=== PATIENT | male | born 1960 | race Caucasian/White ===

== ENCOUNTER 2023-09-15 16:46 | Emergency (ER) | payer OTHER, SELFPAY ==
[2023-09-15] VITALS (14 sets, daily range): BP systolic 125–162; BP diastolic 64–100; PULSE 82–102; RESP 12–21; TEMP 36.7; O2SAT 93–99; BMI 28.6
--- NOTE | 2023-09-15 16:59 | ECG_ITS ---
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
[2023-09-15 17:15] LABS: Basophils Absolute Auto 0.1 10^3/uL (0.0-0.1); Basophils Percent Auto 0.8 % (0.2-2.0); Eosinophils Absolute Auto 0.3 10^3/uL (0.0-0.7); Eosinophils Percent Auto 2.1 % (0.9-7.0); Hematocrit 42.7 % (42.0-54.0); Hemoglobin 14.5 g/dL (14.0-18.0); Immature Granulocytes Abs Auto 0.06 10^3/uL (0.00-0.03); Immature Granulocytes Pct Auto 0.5 % (0.0-0.5); Lymphocytes Absolute Auto 2.2 10^3/uL (1.2-3.8); Lymphocytes Percent Auto 16.8 % (20.5-60.0); Mean Corpuscular Hemoglobin 29.4 pg (25.9-34.0); Mean Corpuscular Volume 86.6 fL (80.0-94.0); Mean Platelet Volume 10.6 fL (9.5-13.5); Monocytes Absolute Auto 0.8 10^3/uL (0.3-0.8); Monocytes Percent Auto 6.3 % (1.7-12.0); Neutrophils Absolute Auto 9.6 10^3/uL (1.4-6.5); Neutrophils Percent Auto 73.5 % (43.0-75.0); Platelet Count 252 10^3/uL (150-450); Red Blood Count 4.93 10^6/uL (4.70-6.10)
--- NOTE | 2023-09-15 17:19 | ED.GENADUL1 ---
HPI - General Adult General Chief complaint: Arrhythmia/Palpitations Stated complaint: Palpitations, Dizziness, Sweats Time Seen by Provider: 09/15/23 16:50 Source: patient Mode of arrival: walk-in Limitations: no limitations History of Present Illness HPI narrative: Patient was standing at work when he suddenly developed dizziness, heart palpitations - like my heart was racing - and then felt cool and had clammy skin. Symptoms lasted about 30 minutes - he went to the office at work, sat down and slowly started to feel better. By the time he arrived to the E.D. he felt back to normal. ROS = he had a cough for about a week that produced sputum but is gone now. No associated fever. PMHx = COPD, hypothyroidism, high cholesterol. No history of vertigo, CAD, AMI, dysrhythmia or stenting Related Data Home Medications Medication Instructions Recorded Confirmed budesonide 160 mcg-glycopyr 9 2 inh inhalation BID 09/15/23 09/15/23 mcg-formot 4.8 mcg/actuation HFA inhaler (Breztri Petsyphere) levothyroxine 125 mcg tablet 125 mcg PO DAILY 09/15/23 09/15/23 rosuvastatin 10 mg tablet 10 mg PO DAILY 09/15/23 09/15/23 Allergies Allergy/AdvReac Type Severity Reaction Status Date / Time cefuroxime [From Ceftin] Allergy Hives Verified 09/15/23 16:54 Exam Narrative Exam Narrative: Nurses notes and vital signs reviewed and patient is not hypoxic. afebrile General: Well-appearing and in no apparent distress. Skin: Warm, dry, no pallor noted. Head: Normocephalic, atraumatic. Eye: Pupils are equal, round and EOMI. No scleral icterus. No nystagmus Ears, Nose, Mouth, and Throat: Oral mucosa is moist Cardiovascular: Regular Rate and Rhythm without murmur, gallop or rub. Respiratory: No accessory muscle use or respiratory distress. Lungs are clear to auscultation, no wheezing, rales or rhonchi Musculoskeletal: normal ROM, no calf or popliteal tenderness, no lower extremity edema/swelling GI: Abdomen is soft, non-distended. Normal bowel sounds. No tenderness to palpation. No rebound, guarding, or rigidity noted. Neurological: A&O x4. No cranial nerve dysfunction observed. No truncal ataxia. Moves all extremities. Sensation intact. Psychiatric: Cooperative and interactive. Normal mood and affect. Constitutional Vital Signs, click to edit/add: Last Vital Signs Temp 98.1 F 09/15/23 16:54 Pulse 86 09/15/23 18:00 Resp 12 09/15/23 18:00 BP 145/94 H 09/15/23 18:00 Pulse Ox 94 L 09/15/23 18:00 O2 Del Method Room Air 09/15/23 16:54 Course Vital Signs Vital signs: Vital Signs Blood Pressure 162/100 H 09/15/23 16:52 Temperature 98.1 F 09/15/23 16:54 Pulse Rate 86 09/15/23 18:00 Respiratory Rate 12 09/15/23 18:00 Blood Pressure 145/94 H 09/15/23 18:00 Pulse Oximetry 94 L 09/15/23 18:00 Oxygen Delivery Method Room Air 09/15/23 16:54 Medical Decision Making MDM Narrative Medical decision making narrative: Patient was placed on financial services specialist and EKG obtained. Blood drawn and sent for evaluation. Orthostatics were positive with 30pt drop in systolic BP going from sitting to standing. Patient received a liter of NS IVF. EKG normal. WBC 13k, no left shift. CMP unremarkable. Troponin negative. Free T3 and Free T4 normal levels. Covid and Influenza were negative. CXR negative for acute worrisome pathology. Results explained to the patient. He was given reassurance. Encouraged to increase oral fluid intake the next 24 hours. If his 2nd troponin is negative then he can be discharged and can see PCP for follow up. ED return if he worsens. Patient signed out to Dr Wayne at 7pm shift change. Lab Data Lab results reviewed: Yes I reviewed the patient's lab results Labs: Lab Results 09/15/23 09/15/23 Range/Units 17:00 17:05 WBC 13.0 H (4.0-11.0) 10^3/uL RBC 4.93 (4.70-6.10) 10^6/uL Hgb 14.5 (14.0-18.0) g/dL Hct 42.7 (42.0-54.0) % MCV 86.6 (80.0-94.0) fL MCH 29.4 (25.9-34.0) pg MCHC 34.0 (29.9-35.2) g/dL RDW 12.0 (11.0-15.0) % Plt Count 252 (150-450) 10^3/uL MPV 10.6 (9.5-13.5) fL Neut % (Auto) 73.5 (43.0-75.0) % Lymph % (Auto) 16.8 L (20.5-60.0) % [place] % (Auto) 6.3 (1.7-12.0) % Eos % (Auto) 2.1 (0.9-7.0) % Baso % (Auto) 0.8 (0.2-2.0) % Neut # (Auto) 9.6 H (1.4-6.5) 10^3/uL Lymph # (Auto) 2.2 (1.2-3.8) 10^3/uL [place] # (Auto) 0.8 (0.3-0.8) 10^3/uL Eos # (Auto) 0.3 (0.0-0.7) 10^3/uL Baso # (Auto) 0.1 (0.0-0.1) 10^3/uL Abs Immat Gran (auto) 0.06 H (0.00-0.03) 10^3/uL Imm/Tot Granulo (auto) 0.5 (0.0-0.5) % Sodium 139 (136-145) mmol/L Potassium 3.8 (3.5-5.1) mmol/L Chloride 103 (98-107) mmol/L Carbon Dioxide 25.1 (21.0-32.0) mmol/L Anion Gap 14.7 BUN 13.0 (7.0-18.0) mg/dL Creatinine 0.94 (0.70-1.30) mg/dL Est GFR ( Amer) >60 (>=60) Est GFR (Non-Af Amer) >60 (>=60) BUN/Creatinine Ratio 13.8 Glucose 99 (74-106) mg/dL Calcium 9.4 (8.5-10.1) mg/dL Total Bilirubin 0.4 (0.2-1.0) mg/dL AST 23 (15-37) U/L ALT 49 (16-63) U/L Alkaline Phosphatase 92 (46-116) U/L Troponin I High Sens 7.6 (4.0-76.1) pg/mL Total Protein 7.8 (6.4-8.2) g/dL Albumin 3.7 (3.4-5.0) g/dL Globulin 4.1 g/dL Albumin/Globulin Ratio 0.9 Free T4 1.27 (0.76-1.46) ng/dL Free T3 2.56 (2.18-3.98) pg/mL Influenza Type A Ag Negative Influenza Type B Ag Negative SARS-CoV-2 Ag (CV2AG) Negative (NEGATIVE) Imaging Data Chest x-ray: Radiologist's impression: ITS Impressions Chest X-Ray 09/15/23 17:25 IMPRESSION: No acute infiltrate or evidence of cardiac decompensation. The overall appearance of the chest is essentially unchanged. Electronically authenticated by: PATITO LARSON Date: 09/15/2023 17:53 ECG Data Attestation: I personally reviewed and interpreted this ECG as follows: Interpretation: EKG interpretation: Emergency Department physician interpretation. Normal sinus rhythm at 91bpm. Normal axis, normal intervals and no ST segment elevation or depression. Normal EKG. Discharge Plan Discharge Chief Complaint: Arrhythmia/Palpitations Clinical Impression: Orthostasis, Near syncope Patient Disposition: Still a Patient Time of Disposition Decision: 18:25 Prescriptions / Home Meds: No Action levothyroxine 125 mcg tablet 125 mcg PO DAILY rosuvastatin 10 mg tablet 10 mg PO DAILY Breztri Aerosphere 160-9-4.8 mcg/actuation HFA aerosol inhaler 2 inh inhalation BID Instructions: Dizziness (ED) Stand Alone Forms: Portal Instructions Referrals: ALBERTO RAMSAY [Primary Care Provider] - 1 week
[2023-09-15] MEDS: 0.9 % SODIUM CHLORIDE 1,000 ML 999 ML IV (17:23)
[2023-09-15 17:24] LABS: Influenza Virus A Antigen Negative; Influenza Virus B Antigen Negative; Internal Control Within Normal Limits; SARS-CoV-2 Ag NEGATIVE (NEGATIVE)
--- NOTE | 2023-09-15 17:25 | XR_ITS ---
The [address] [address] Patient Name: ALBERTO FLOYD MRN: [id number] date: 1960 Sex: M Assigned Patient Location: ER Current Patient Location: ER Accession/Order Number: [id number] Exam Date: 09/15/2023 17:39 Report Date: 09/15/2023 17:53 At the request of: SRIDHAR STEVENS Procedure: XR chest 1V EXAM: XR chest 1V at 1735 hours HISTORY: palpitations COMPARISON: 04/15/2016 TECHNIQUE: AP upright portable chest x-ray FINDINGS: The heart is not enlarged and the vasculature is not distended. No acute infiltrate, effusion or pneumothorax is identified. The osseous structures are grossly intact. XR/XR chest 1V IMPRESSION: No acute infiltrate or evidence of cardiac decompensation. The overall appearance of the chest is essentially unchanged. Electronically authenticated by: PATITO LARSON Date: 09/15/2023 17:53
--- NOTE | 2023-09-15 17:30 | PC.NURSE ---
Patient reports having episode of feeling like heart was racing and sweating . Symptoms resolved at this time.
[2023-09-15 17:42] LABS: Free T4 1.27 ng/dL (0.76-1.46)
[2023-09-15 17:49] LABS: Alanine Aminotransferase 49 U/L (16-63); Albumin Globulin Ratio 0.9; Albumin Level 3.7 g/dL (3.4-5.0); Alkaline Phosphatase 92 U/L (46-116); BUN Creatinine Ratio 13.8; Bilirubin Total 0.4 mg/dL (0.2-1.0); Calcium 9.4 mg/dL (8.5-10.1); Carbon Dioxide 25.1 mmol/L (21.0-32.0); Estimated GFR (African America >60 (>=60); Estimated GFR (Non-African Ame >60 (>=60); Free T3 2.56 pg/mL (2.18-3.98); Globulin 4.1 g/dL; Glucose 99 mg/dL (74-106); Total Protein 7.8 g/dL (6.4-8.2); Troponin I High Sensitivity 7.6 pg/mL (4.0-76.1)
[2023-09-15 18:07] LABS: Anion Gap 14.7; Aspartate Amino Transferase 23 U/L (15-37); Chloride 103 mmol/L (98-107); Potassium 3.8 mmol/L (3.5-5.1); Sodium 139 mmol/L (136-145)
[2023-09-15 20:26] LABS: Troponin I High Sensitivity 8.4 pg/mL (4.0-76.1)
== END 2023-09-15 21:23 | disposition home or self-care (01) ==
PROVIDERS: Emergency Medicine; Emergency Provider Internal Medicine; PCP Internal Medicine
DX: R55 Syncope and collapse (principal); J44.9 Chronic obstructive pulmonary disease, unspecified; E03.9 Hypothyroidism, unspecified; E78.00 Pure hypercholesterolemia, unspecified; Z79.899 Other long term (current) drug therapy; Z79.890 Hormone replacement therapy; Z20.822 Contact with and (suspected) exposure to COVID-19
CPT/HCPCS: 36415; 71045; 80053; 84439; 84481; 84484; 85025; 87804; 87811; 93005; 96360; 99285